=== PATIENT | female | born 1950 | race Two or more races ===

== ENCOUNTER 2020-04-17 10:53 | Outpatient (CLI) | payer OTHER | END 2020-04-17 11:04 | disposition home or self-care (01) | LOC: SONOGRAMA 10:53 | PROVIDERS: ATTEND Surgery | DX: N60.02 Solitary cyst of left breast (principal); N60.11 Diffuse cystic mastopathy of right breast; N60.12 Diffuse cystic mastopathy of left breast ==

== ENCOUNTER 2020-04-20 13:01 | Outpatient (CLI) | payer OTHER | END 2020-04-20 13:10 | disposition home or self-care (01) | LOC: SONOGRAMA 13:01 | PROVIDERS: ATTEND Surgery | DX: D05.12 Intraductal carcinoma in situ of left breast (principal); N60.11 Diffuse cystic mastopathy of right breast; N60.12 Diffuse cystic mastopathy of left breast; R92.0 Mammographic microcalcification found on diagnostic imaging of breast; N64.59 Other signs and symptoms in breast ==

== ENCOUNTER 2020-05-22 06:15 | Day surgery (SDC) | payer OTHER ==
[~2020-05-22 06:15] MED LIST: COZAAR50 MG PO; SYNTHROID125 MCG PO
== END 2020-05-22 20:10 | disposition home or self-care (01) ==
LOC: CIR.AMB 06:15 → ADM 06-16 10:30
PROVIDERS: ATTEND Surgery
DX: D05.12 Intraductal carcinoma in situ of left breast (principal); Z20.822 Contact with and (suspected) exposure to COVID-19